=== PATIENT | male | born 1945 | race Caucasian/White ===

== ENCOUNTER → 2017-07-03 | Outpatient (CLI) | payer MEDICARE ==
[2017-07-03 12:01] LABS: Blood Urea Nitrogen 15 mg/dL (9-20); Non-African American GFR(MDRD) >60 (>60 ml/min/1.73 sqM)
--- NOTE | 2017-07-03 13:28 | CT ---
EXAMINATION TYPE: CT soft tissue neck w con DATE OF EXAM: 07/03/2017 COMPARISON: NONE HISTORY: 71-year-old male hoarseness/yeast infection TECHNIQUE: Contiguous axial scanning of the neck performed with IV Contrast, patient injected with 94 mL of Omnipaque 300. Coronal/sagittal reconstructions performed. CT DLP: 514.80 mGycm Automated exposure control for dose reduction was used. FINDINGS: Visualized intracranial structures show no gross abnormality. Atherosclerotic calcifications within t he carotid siphons. Mild mucosal thickening within the left maxillary sinus with possible trace air-fluid level. Moderate mucosal thickening throughout the ethmoid air cells. Mastoid air cells well pneumatized. Nasopharynx appears clear. There is soft tissue thickening in the region of the left palatine tonsil with soft tissue asymmetrically effacing the left oropharynx, axial image 60. Mild lingual tonsillar hypertrophy. The glottic and subglottic structures, tracheal column, and visualized upper appeared clear. The epiglottis and prevertebral soft tissues appear normal. Submandibular and parotid glands appear satisfactory. Heterogeneity of the thyroid gland with sugges tion of underlying nodules measuring up to 1.5 cm. Scattered nonenlarged cervical lymph nodes are present on both sides. Median sternotomy changes. IMPRESSION: 1. ASYMMETRIC SOFT TISSUE IN THE REGION OF THE LEFT PALATINE TONSIL EFFACING THE LEFT SIDE OF THE LOVELY PHARYNX. RECOMMEND DIRECT VISUALIZATION. THIS MAY IN PART BE SECONDARY TO TONGUE POSITIONING. UNDERLY ING MUCOSAL LESION IS NOT EXCLUDED AT THIS TIME. 2. NODULARITY OF THE THYROID GLAND MEASURING UP TO 1.5 CM. THIS CAN BE FURTHER ASSESSED WITH DEDICATE D THYROID ULTRASOUND. 3. CORRELATE TO EXCLUDE ACUTE ON CHRONIC LEFT MAXILLARY SINUS DISEASE.
== END | disposition home or self-care (01) ==
LOC: RADCTMAIN 10:59
PROVIDERS: ATTEND Otolaryngology
DX: E04.1 Nontoxic single thyroid nodule (principal); M79.89 Other specified soft tissue disorders; R93.8 Abnormal findings on diagnostic imaging of other specified body structures; R49.0 Dysphonia
CPT/HCPCS: 82565; 84520; 70491; 36415; Q9967

== ENCOUNTER 2017-07-26 11:57 | Day surgery (SDC) | payer MEDICARE ==
[2017-07-26 13:11] VITALS: RESP 14; TEMP 97.5
[2017-07-26 13:53] VITALS: BP 142/84; PULSE 75
--- NOTE | 2017-07-26 14:11 | US ---
ULTRASOUND GUIDED FNA THYROID BIOPSY: CLINICAL HISTORY: Large left thyroid nodule FINDINGS: The procedure was explained to the patient. The risks, complications, benefits and alternatives were discussed and any questions were answered. Informed consent was obtained. Patient was placed supin e on the ultrasound table and prepped and draped in the usual sterile fashion. Utilizing a 25 gauge needle, five passes were made into the requested left thyroid nodule. Patient was stable throughout the procedure. Pathology is pending. All elements of maximal barrier technique were utilized. IMPRESSION: 1. Successful ultrasound guided FNA thyroid biopsy.
== END 2017-07-26 13:50 | disposition home or self-care (01) ==
LOC: RADPROMAIN 11:57
PROVIDERS: ATTEND Otolaryngology
DX: E04.1 Nontoxic single thyroid nodule (principal)
CPT/HCPCS: 10022; 76942; 88173; 88305

== ENCOUNTER → 2018-03-04 | Outpatient (CLI) | payer MEDICARE ==
--- NOTE | 2018-03-04 18:55 | CT ---
EXAMINATION TYPE: CT brain wo con DATE OF EXAM: 03/04/2018 HISTORY: Headaches x6 weeks. CT DLP: 1046.8 mGycm. Automated Exposure Control for Dose Reduction was Utilized. TECHNIQUE: CT scan of the head is performed without contrast. COMPARISON: None. FINDINGS: There is no acute intracranial hemorrhage or midline shift identified. There is diffuse v entricular and sulcal prominence consistent with diffuse age-related cerebral atrophy. There is low- attenuation in the periventricular white matter consistent with chronic small vessel ischemic change. There is patchy opacification mucosal thickening involving ethmoid sinuses bilaterally. There is isaac e mucosal thickening in right frontal and anterior right sphenoid sinus. The globes are intact bilate rally. IMPRESSION: No acute intracranial hemorrhage or midline shift. There is mild to moderate diffuse ag e-related cerebral atrophy and chronic small vessel ischemic change noted. Possible acute on chronic paranasal sinus disease, correlate clinically.
== END | disposition home or self-care (01) ==
LOC: RADCTMAIN 18:06
PROVIDERS: ATTEND Family Medicine
DX: G31.9 Degenerative disease of nervous system, unspecified (principal); I67.82 Cerebral ischemia
CPT/HCPCS: 70450

== ENCOUNTER → 2018-11-11 | Day surgery (SDC) | payer MEDICARE ==
[2018-11-07 15:43] VITALS: BMI 31.7
[~2018-11-11] MED LIST: LACTATED RINGERS 1,000 ML IV ONE; LIDOCAINE 1% 20 ML VIAL (10MG/ML) FOR IV START INTRADERMA ONE; LIDOCAINE 1% INJ 10MG/ML (20 ML MDV) ONE; PROPOFOL 10 MG/ML 20 ML VIAL IV ONE
[2018-11-11 11:25] VITALS: TEMP 97.9
[2018-11-11 14:57] VITALS: RESP 16
--- NOTE | 2018-11-11 15:05 | P.PCN ---
Date of Procedure: 11/11/18 Procedure(s) Performed: Procedures: 1. Esophagogastroduodenoscopy and biopsy. 2. Colonoscopy and biopsy. Preoperative diagnosis: History of Madison's esophagus, history of polyps and rectal bleeding. Postoperative diagnosis: 1. Hiatal hernia and short segment of Madison's esophagus multiple biopsies obtained. 2. Sigmoid diverticulosis. 3. Elongated fleshy distal sigmoid polyp, probably representing regenerative tissue biopsies obtained. Preparation: HalfLytely prep. Sedation: Was provided by anesthesia. Brief clinical history: The patient is a 73-year-old male who I have evaluated in the office earlier this month regarding rectal bleeding. The patient has history of Madison's esophagus and his last EGD was in September 2016. He also has history of colon polyps and his last exam was in 2014. Procedure: With the patient on his left lateral decubitus position and after informed consent and adequate sedation, I passed the Olympus-GIF H190 video upper endoscope through the cricopharyngeus down the esophagus. GE junction was irregular and started around 36 cm from the incisors and the tubular esophagus extended for 3-4 cm defining a segment of short Madison's. There was a 1-2 cm hiatal hernia then the endoscope was passed into the stomach which was insufflated with air and inspected in detail including the retroflex view in the cardia. Finally, the endoscope was passed through the pylorus into the duodenum. Pyloric channel, duodenal bulb, post bulbar area and descending duodenum appeared within normal limits. The stomach showed mottling and erythema as previously described but no ulcers or bleeding. I obtained biopsies from the Madison's segment then the endoscope was withdrawn and I proceeded with the colonoscopy. Perianal area did not show any fissures or fistulas. There were no masses felt on digital rectal examination. The Olympus CF H190L video colonoscope was then inserted in the rectum in the usual fashion and advanced to the cecum. There were multiple diverticular orifices seen scattered in the sigmoid but I saw no evidence of acute diverticulitis or strictures. In the distal sigmoid, around 20 cm from the anal verge there was an elongated redundant fleshy polyp having the appearance of a broad fleshy fold. This appeared somewhat friable. I obtained couple biopsies but no attempt was made to snare it because of its location and broad attachment. No other polyps or tumors were seen or any spontaneous bleeding. I retroflexed the endoscope in the rectum before the endoscope was withdrawn. The patient tolerated the procedure well. Plan: The patient was reassured. Will await biopsy results and make further plans. I anticipate repeating his upper endoscopy in 2-3 years.
[2018-11-11 15:23] VITALS: BP 136/84; PULSE 74
== END | disposition home or self-care (01) ==
LOC: ORWHC2ENDO 10:44
DX: K63.5 Polyp of colon (principal); K22.70 Barrett's esophagus without dysplasia; K57.30 Diverticulosis of large intestine without perforation or abscess without bleeding; K44.9 Diaphragmatic hernia without obstruction or gangrene; I48.91 Unspecified atrial fibrillation; K21.9 Gastro-esophageal reflux disease without esophagitis; I10 Essential (primary) hypertension; E78.5 Hyperlipidemia, unspecified; Z87.891 Personal history of nicotine dependence; Z79.82 Long term (current) use of aspirin; Z86.010 Personal history of colon polyps; Z88.5 Allergy status to narcotic agent; Z79.899 Other long term (current) drug therapy; Z79.01 Long term (current) use of anticoagulants; Z85.51 Personal history of malignant neoplasm of bladder
CPT/HCPCS: 88305; 45380; 43239; J2001; J2704

== ENCOUNTER → 2020-12-14 | Outpatient (CLI) | payer MEDICARE ==
[2020-12-14 21:03] LABS: Chol/HDL Ratio 3.27; LDL Cholesterol,Calculated 71.2 mg/dL (0.0-131.0); VLDL Calculation 12.8 mg/dL (5.00-40.00)
== END | disposition home or self-care (01) ==
LOC: LABWHC1 11:38
PROVIDERS: ATTEND Internal Medicine Interventional Cardiology
DX: E78.2 Mixed hyperlipidemia (principal)
CPT/HCPCS: 36415; 80061; 84450; 84460

== ENCOUNTER 2022-10-19 06:11 | Emergency (ER) | payer MEDICARE ==
[2022-10-19] MEDS ORDERED: SODIUM CHLORIDE 0.9% 500 ML 500 ML IV STA (06:31)
[2022-10-19] MEDS ORDERED: fentaNYL (PF) 50 MCG/ML 2 ML AMP IVP STA (06:45)
[2022-10-19 06:46] VITALS: TEMP 97.8
--- NOTE | 2022-10-19 06:55 | ED ---
Abdominal Pain HPI - General Chief Complaint: Abdominal Pain Stated Complaint: abd pain,vomiting Time Seen by Provider: 10/19/22 06:23 Source: patient, family, RN notes reviewed, old records reviewed Mode of arrival: ambulatory - History of Present Illness Initial Comments: This is a pleasant 77-year-old male that presents to the emergency room with family complaining of right lower quadrant pain since yesterday. Patient states he has not had bowel movement in 3 days. He states pain improved after an episode of vomiting. He feels as though he needs to pass gas and has been unable to. Denies any fevers. Surgical history of appendectomy and cholecystectomy. MD Complaint: abdominal pain -: days(s) (1) Location: RLQ Radiation: back Severity scale (1-10): 7 Quality: sharp Consistency: intermittent Improves With: vomiting Worsens With: nothing Associated Symptoms: nausea, vomiting, constipation (Last bowel movement 3 days ago) - Related Data Home Medications Medication Instructions Recorded Confirmed Omeprazole [PriLOSEC] 20 mg PO DAILY 03/02/14 11/07/18 Aspirin [Adult Low Dose Aspirin EC] 81 mg PO DAILY 12/30/15 11/07/18 Nitroglycerin Sl Tabs [Nitrostat] 0.4 mg SUBLINGUAL Q5M PRN 12/30/15 11/07/18 Rivaroxaban [Xarelto] 20 mg PO DAILY 12/30/15 11/07/18 Atorvastatin [Lipitor] 80 mg PO HS 01/12/16 11/07/18 Spironolactone [Aldactone] 25 mg PO DAILY 09/26/16 11/07/18 Fluticasone Propion/Salmeterol 2 puff INHALATION BID 11/07/18 11/07/18 [Advair Hfa 115-21 Mcg Inhaler] Losartan [Cozaar] 25 mg PO 1200 11/07/18 11/07/18 Previous Rx's Medication Instructions Recorded Metoprolol Tartrate [Lopressor] 25 mg PO BID #60 tab 01/20/16 Ciprofloxacin HCl [Cipro] 500 mg PO Q12HR 7 Days #14 tablet 10/19/22 Ketorolac [Toradol] 10 mg PO Q8HR #15 tab 10/19/22 Tamsulosin [Flomax] 0.4 mg PO DAILY #7 cap 10/19/22 Allergies Allergy/AdvReac Type Severity Reaction Status Date / Time hydrocodone bitartrate Allergy Itching Verified 11/07/18 15:26 [From Vicodin] dust Allergy "asthma" Uncoded 11/07/18 15:26 "can't breathe" Review of Systems ROS Statement: Those systems with pertinent positive or pertinent negative responses have been documented in the HPI. ROS Other: All systems not noted in ROS Statement are negative. Past Medical History Past Medical History: Atrial Fibrillation, Asthma, Cancer, GERD/Reflux, GI Bleed, Hyperlipidemia, Hypertension, Osteoarthritis (OA) Additional Past Medical History / Comment(s): Current GI bleed. Hx Bladder [id number], also Hx Skin CA - basal cell, Madison's. History of Any Multi-Drug Resistant Organisms: None Reported Past Surgical History: Appendectomy, Bladder Surgery, Cholecystectomy, Coronary Bypass/CABG, Heart Catheterization, Orthopedic Surgery Additional Past Surgical History / Comment(s): RT ROTATOR CUFF SX. PARTIAL BLADDER REMOVED D/T CANCER. SKIN CA REMOVED. PAST EGD, COLONOSCOPY. 4 vessel CABG. Past Anesthesia/Blood Transfusion Reactions: No Reported Reaction Past Psychological History: No Psychological Hx Reported Past Alcohol Use History: Occasional Past Drug Use History: None Reported - Past Family History Mother Family Medical History: Cancer Additional Family Medical History / Comment(s): at age 36 from breast cancer. Father Family Medical History: Myocardial Infarction (CT) Additional Family Medical History / Comment(s): at 73 yrs of age. Brother(s) Family Medical History: Cancer Additional Family Medical History / Comment(s): Intestinal cancer. General Exam General appearance: alert, in no apparent distress Head exam: Present: atraumatic Eye exam: Absent: scleral icterus, conjunctival injection, periorbital swelling Respiratory exam: Present: normal lung sounds bilaterally. Absent: respiratory distress, wheezes, rales, rhonchi, stridor, chest wall tenderness, accessory muscle use Cardiovascular Exam: Present: regular rate GI/Abdominal exam: Present: soft, tenderness (RLQ). Absent: distended, guardin g, rebound, rigid Extremities exam: Present: normal capillary refill. Absent: pedal edema Neurological exam: Present: alert, oriented X3 Psychiatric exam: Present: normal affect, normal mood Skin exam: Present: warm, dry, normal color. Absent: cyanosis, diaphoretic, petechiae, pallor Course Vital Signs 10/19/22 10/19/22 06:19 06:35 Temperature 97.4 F L 97.8 F Pulse Rate 82 82 Respiratory 16 16 Rate Blood Pressure 158/93 149/83 O2 Sat by Pulse 96 98 Oximetry Medical Decision Making - Medical Decision Making CT shows no evidence of bowel obstruction. There is a mild right hydroureter ureterohydronephrosis with an obstructing 4 mm calculus in the right mid ureter. Additional nonobstructive right renal calculi. Colonic diverticulosis without evidence of diverticulitis. 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 There is a mild leukocytosis and UA shows evidence of UTI with hematuria. Patient will be placed on Cipro. He was also prescribed Flomax and Toradol. Patient sees Dr Reyes for past history of bladder cancer and kidney stones. Directed to follow up with urology next week. He was given a strainer for urine. He is agreeable to this plan of care. He was also notified of the aneurysm right iliac artery and directed to discuss this result with his primary care doctor. Patient family are agreeable to this plan of care. Case was discussed with Dr. Acosta Was pt. sent in by a medical professional or institution? @ -No Did you speak to anyone other than the patient for history? @ -No Did you review nursing and triage notes? @ -Yes I agree Were old charts reviewed? @ -Previous admissions Differential Diagnosis? @ -Differential Abdominal Pain Men: Appendicitis, cholecystitis, diverticulosis, ischemic bowel, pancreatitis, h epatitis, UTI, gastroenteritis, AAA, incarcerated hernia, bowel obstruction, constipation, inflammatory bowel, hepatitis, peptic ulcer disease, splenic infarction, perforated viscus, testicular torsion, this is not meant to be an all-inclusive list EKG interpreted by me (3pts min.)? @ -Not applicable X-rays interpreted by me (1pt min.)? @ -Yes no evidence of free air on KUB, surgical clips in the abdomen. Radiologist interpretation overall nonobstructive bowel gas pattern CT interpreted by me (1pt min.)? @ -Yes no evidence of bowel obstruction, calculus right mid ureter with per inephric fat stranding. U/S interpreted by me (1pt. min.)? @ -Not applicable What testing was considered but not performed? (CT, X-rays, U/S, labs)? Why? @None What meds were considered but not given? Why? @ -I did consider Todd as patient states he had an episode of vomiting however at this time he states is not nauseated. Did you discuss the management of the patient with other professionals? @ -No Did you reconcile home meds? @ -No Was smoking cessation discussed for >3mins.? @ -Not applicable Was critical care preformed (if so, how long)? @ -No Were there social determinants of health that impacted care today? How? (Homelessness, low income, unemployed, alcoholism, drug addiction, transportation, low edu. Level, literacy, decrease access to med. care, skilled nursing, rehab)? @ -No Was there de-escalation of care discussed even if they declined? (Discuss DNR or withdrawal of care, Hospice)? @ -Not applicable What co-morbidities impacted this encounter? (DM, HTN, Smoking, COPD, CAD, Cancer, CVA, Hep., AIDS, mental health diagnosis, sleep apnea, morbid obesity)? @ -Bladder cancer, hypertension, GI bleed Was patient admitted / discharged? @ -Discharged Undiagnosed new problem with uncertain prognosis? 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 @ -No Were any procedures done? @ -No Diagnosis/symptom? @ -Right hydroureteronephrosis with obstructive calculi, right common iliac artery aneurysm Acute, or Chronic, or Acute on Chronic? @ -Acute Uncomplicated (without systemic symptoms) or Complicated (systemic symptoms)? @ -Complicated Side effects of treatment? @ -None Exacerbation, Progression, or Severe Exacerbation] @ -Exacerbation Poses a threat to life or bodily function? @ -No - Lab Data Result diagrams: 10/19/22 06:41 10/19/22 06:41 Lab Results 10/19/22 10/19/22 10/19/22 Range/Units 06:41 06:41 06:41 WBC 16.0 H (3.8-10.6) k/uL RBC 5.11 (4.30-5.90) m/uL Hgb 15.3 (13.0-17.5) gm/dL Hct 46.4 (39.0-53.0) % MCV 90.6 (80.0-100.0) fL MCH 29.9 (25.0-35.0) pg MCHC 33.0 (31.0-37.0) g/dL RDW 12.6 (11.5-15.5) % Plt Count 266 (150-450) k/uL MPV 8.7 Neutrophils % 88 % Lymphocytes % 6 % Monocytes % 5 % Eosinophils % 1 % Basophils % 1 % Neutrophils # 14.0 H (1.3-7.7) k/uL Lymphocytes # 0.9 L (1.0-4.8) k/uL Monocytes # 0.8 (0-1.0) k/uL Eosinophils # 0.1 (0-0.7) k/uL Basophils # 0.1 (0-0.2) k/uL Sodium 135 L (137-145) mmol/L Potassium 4.9 (3.5-5.1) mmol/L Chloride 102 (98-107) mmol/L Carbon Dioxide 22 (22-30) mmol/L Anion Gap 11 mmol/L BUN 21 H (9-20) mg/dL Creatinine 0.92 (0.66-1.25) mg/dL Est GFR (CKD-EPI)AfAm >90 (>60 ml/min/1.73 sqM) Est GFR (CKD-EPI)NonAf 79 (>60 ml/min/1.73 sqM) Glucose 257 H (74-99) mg/dL Plasma Lactic Acid Rafael 1.8 (0.7-2.0) mmol/L Calcium 9.3 (8.4-10.2) mg/dL Total Bilirubin 1.1 (0.2-1.3) mg/dL AST 29 (17-59) U/L ALT 39 (4-49) U/L Alkaline Phosphatase 104 (38-126) U/L Total Protein 7.6 (6.3-8.2) g/dL Albumin 4.5 (3.5-5.0) g/dL Amylase 77 (30-110) U/L Lipase 95 (23-300) U/L Urine Color Urine Appearance (Clear) Urine pH (5.0-8.0) Ur Specific [place] (1.001-1.035) Urine Protein (Negative) Urine Glucose (UA) (Negative) Urine Ketones (Negative) Urine Blood (Negative) Urine Nitrite (Negative) Urine Bilirubin (Negative) Urine Urobilinogen (<2.0) mg/dL Ur Leukocyte Esterase (Negative) Urine RBC (0-5) /hpf Urine WBC (0-5) /hpf Ur Squamous Epith Cells (0-4) /hpf Urine Mucus (None) /hpf 10/19/22 Range/Units 06:58 WBC (3.8-10.6) k/uL RBC (4.30-5.90) m/uL Hgb (13.0-17.5) gm/dL Hct (39.0-53.0) % MCV (80.0-100.0) fL MCH (25.0-35.0) pg MCHC (31.0-37.0) g/dL RDW (11.5-15.5) % Plt Count (150-450) k/uL MPV Neutrophils % % Lymphocytes % % Monocytes % % Eosinophils % % Basophils % % Neutrophils # (1.3-7.7) k/uL Lymphocytes # (1.0-4.8) k/uL Monocytes # (0-1.0) k/uL Eosinophils # (0-0.7) k/uL Basophils # (0-0.2) k/uL Sodium (137-145) mmol/L Potassium (3.5-5.1) mmol/L Chloride (98-107) mmol/L Carbon Dioxide (22-30) mmol/L Anion Gap mmol/L BUN (9-20) mg/dL Creatinine (0.66-1.25) mg/dL Est GFR (CKD-EPI)AfAm (>60 ml/min/1.73 sqM) Est GFR (CKD-EPI)NonAf (>60 ml/min/1.73 sqM) Glucose (74-99) mg/dL Plasma Lactic Acid Rafael (0.7-2.0) mmol/L Calcium (8.4-10.2) mg/dL Total Bilirubin (0.2-1.3) mg/dL AST (17-59) U/L ALT (4-49) U/L Alkaline Phosphatase (38-126) U/L Total Protein (6.3-8.2) g/dL Albumin (3.5-5.0) g/dL Amylase (30-110) U/L Lipase (23-300) U/L Urine Color Light Yellow Urine Appearance Clear (Clear) Urine pH 7.5 (5.0-8.0) Ur Specific [place] 1.019 (1.001-1.035) Urine Protein Negative (Negative) Urine Glucose (UA) 4+ H (Negative) Urine Ketones 1+ H (Negative) Urine Blood Large H (Negative) Urine Nitrite Negative (Negative) Urine Bilirubin Negative (Negative) Urine Urobilinogen 2.0 (<2.0) mg/dL Ur Leukocyte Esterase Large H (Negative) Urine RBC 139 H (0-5) /hpf Urine WBC 69 H (0-5) /hpf Ur Squamous Epith Cells <1 (0-4) /hpf Urine Mucus Rare H (None) /hpf Disposition Clinical Impression: Kidney stone on right side, Hydroureteronephrosis, Aneurysm of right common iliac artery Disposition: HOME SELF-CARE Condition: Good Instructions (If sedation given, give patient instructions): Kidney Stones (ED) Additional Instructions: Your computed tomography scan today shows a 4 mm calculus in the right mid ureter. Please take antibiotics, Flomax and Toradol as prescribed. Follow-up with your urologist next week. Return to the emergency room with any new or concerning symptoms. On CT there is also an incidental finding of a 2.1 cm aneurysm of the right common iliac artery. Please discuss these results with your primary care doctor. Prescriptions: Ciprofloxacin HCl [Cipro] 500 mg PO Q12HR 7 Days #14 tablet Tamsulosin [Flomax] 0.4 mg PO DAILY #7 cap Ketorolac [Toradol] 10 mg PO Q8HR #15 tab Is patient prescribed a controlled substance at d/c from ED?: No Referrals: Eloy Blake MD [Primary Care Provider] - 1-2 days Rm Reyes MD [STAFF PHYSICIAN] - 1-2 days Time of Disposition: 07:57
--- NOTE | 2022-10-19 07:05 | XR ---
EXAMINATION TYPE: XR KUB DATE OF EXAM: 10/19/2022 COMPARISON: CT abdomen pelvis 10/19/2022 HISTORY: Abdominal pain TECHNIQUE: Upright KUB was obtained. FINDINGS: Small bowel demonstrates no evidence for dilatation or air fluid levels. Gas and fecal material is seen in non-distended colon. No convincing evidence for pneumoperitoneum. No unusual calcifications. Surgical clips in the right upper quadrant and bilateral pelvises. The lung bases are clear. The osseous structures are intact. IMPRESSION: Overall nonobstructive bowel gas pattern.
[2022-10-19 07:11] LABS: Basophils # (A) 0.1 k/uL (0-0.2); Basophils % (A) 1 %; Eosinophils # (A) 0.1 k/uL (0-0.7); Eosinophils % (A) 1 %; HCT 46.4 % (39.0-53.0); HGB 15.3 gm/dL (13.0-17.5); Lymphocytes # (A) 0.9 k/uL (1.0-4.8); Lymphocytes % (A) 6 %; MCH 29.9 pg (25.0-35.0); MCV 90.6 fL (80.0-100.0); Mean Platelet Volume 8.7; Monocytes # (A) 0.8 k/uL (0-1.0); Monocytes % (A) 5 %; Neutrophils % (A) 88 %; Platelet Count 266 k/uL (150-450); RBC 5.11 m/uL (4.30-5.90); RDW 12.6 % (11.5-15.5)
--- NOTE | 2022-10-19 07:12 | CT ---
EXAMINATION TYPE: CT abdomen pelvis wo con CT DLP: 1108.6 mGycm, Automated exposure control for dose reduction was used. DATE OF EXAM: 10/19/2022 7:01 AM COMPARISON: KUB of the same date., CT abdomen pelvis 01/01/2011. CLINICAL INDICATION:Male, 77 years old with history of abd pain RLQ; TECHNIQUE: Standard CT of the abdomen and pelvis without IV or oral contrast. Lack of IV or oral co ntrast limits evaluation of solid and hollow organ viscera. Coronal and sagittal reformats were perfo rmed. FINDINGS: LOWER CHEST: Left lower lobe subsegmental atelectasis. Mild cardiomegaly. No pericardial effusion. Co ronary arterial calcifications. ABDOMEN LIVER: Unremarkable noncontrast appearance. GALLBLADDER AND BILE DUCTS: The gallbladder is surgically absent. No biliary duct dilatation. PANCREAS: Unremarkable noncontrast appearance. SPLEEN: Unremarkable noncontrast appearance. ADRENAL GLANDS: Unremarkable noncontrast appearance. KIDNEYS AND URETERS: Left kidney is unremarkable without evidence of hydronephrosis or renal calculi. Mild right hydroureteronephrosis with an obstructing 4 mm calculus in the mid right ureter there is associated perinephric and periureteral fat stranding. Additional nonobstructive right renal calculi measuring up to 6 mm. PELVIS BLADDER: Unremarkable REPRODUCTIVE: Coarse calcifications of the prostate gland are identified. ABDOMEN & PELVIS STOMACH AND BOWEL: Small hiatal hernia, duodenum is unremarkable. Distal colonic diverticulosis witho ut evidence for acute diverticulitis. The appendix is not visualized however there is no significant inflammatory changes within the right lower quadrant. No evidence of bowel obstruction. PERITONEUM: No evidence of pneumoperitoneum or free fluid. Surgical clips along the bilateral pelvic london. VASCULATURE: Moderate atherosclerotic calcifications are present throughout the abdominal aorta and i ts branches. Fusiform 2.1 cm aneurysm involving the right common iliac artery. MUSCULOSKELETAL: No acute osseous abnormalities. Mild disc degeneration changes are present throughou t the thoracolumbar spine. LYMPH NODES: No gross evidence for lymphadenopathy. SOFT TISSUE/ABDOMINAL WALL: Tiny fat filled umbilical hernia. IMPRESSION: 1. Mild right hydroureteronephrosis with an obstructing 4 mm calculus in the right mid ureter. Addit ional nonobstructive right renal calculi. 2. Colonic diverticulosis without evidence for acute diverticulitis. 3. 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
[2022-10-19 07:17] LABS: Appearance,Urine Clear (Clear); Bilirubin,Urine Negative (Negative); Blood,Urine Large (Negative); Color,Urine Light Yellow; Glucose,Urine (UA) 4+ (Negative); Ketones,Urine 1+ (Negative); Leukocyte Esterase,Urine Large (Negative); Mucus,Urine Rare /hpf; Nitrite,Urine Negative (Negative); PH, Urine 7.5 (5.0-8.0); Protein,Urine Negative (Negative); RBC,Urine 139 /hpf (0-5); Specific Gravity,Urine 1.019 (1.001-1.035); Squamous Epithelial Cell,Urine <1 /hpf (0-4); WBC,Urine 69 /hpf (0-5)
[2022-10-19 07:19] LABS: ALT 39 U/L (4-49); AST 29 U/L (17-59); African American GFR (CKD) >90 (>60 ml/min/1.73 sqM); Albumin 4.5 g/dL (3.5-5.0); Alkaline Phosphatase 104 U/L (38-126); Amylase 77 U/L (30-110); Anion Gap 11 mmol/L; Blood Urea Nitrogen 21 mg/dL (9-20); Calcium 9.3 mg/dL (8.4-10.2); Carbon Dioxide 22 mmol/L (22-30); Chloride 102 mmol/L (98-107); Glucose 257 mg/dL (74-99); Lipase 95 U/L (23-300); Non-African American GFR(CKD) 79 (>60 ml/min/1.73 sqM); Sodium 135 mmol/L (137-145); Total Bilirubin 1.1 mg/dL (0.2-1.3); Total Protein 7.6 g/dL (6.3-8.2)
[2022-10-19 07:54] LABS: Potassium 4.9 mmol/L (3.5-5.1)
[2022-10-19 08:06] VITALS: BP 143/83; PULSE 86; RESP 15
== END 2022-10-19 08:09 | disposition home or self-care (01) ==
LOC: EC 06:11
DX: N13.2 Hydronephrosis with renal and ureteral calculous obstruction (principal); I72.3 Aneurysm of iliac artery; K57.30 Diverticulosis of large intestine without perforation or abscess without bleeding; I48.91 Unspecified atrial fibrillation; J45.909 Unspecified asthma, uncomplicated; K21.9 Gastro-esophageal reflux disease without esophagitis; E78.5 Hyperlipidemia, unspecified; I10 Essential (primary) hypertension; M19.90 Unspecified osteoarthritis, unspecified site; Z79.899 Other long term (current) drug therapy; Z79.01 Long term (current) use of anticoagulants; Z79.82 Long term (current) use of aspirin; Z79.1 Long term (current) use of non-steroidal anti-inflammatories (NSAID); Z88.5 Allergy status to narcotic agent; Z88.8 Allergy status to other drugs, medicaments and biological substances
CPT/HCPCS: 99285; 96374; 96361; 36415; 80053; 82150; 83605; 83690; 85025; 81001; 87086; 74018; 74176; J3010

== ENCOUNTER → 2022-11-20 | Outpatient (CLI) | payer MEDICARE ==
--- NOTE | 2022-11-20 10:54 | XR ---
EXAMINATION TYPE: XR KUB DATE OF EXAM: 11/20/2022 COMPARISON: 10/19/2022, HISTORY: Pain TECHNIQUE: One view abdominal series FINDINGS: The osseous structures are intact. The bowel gas pattern is nonspecific. Pleural-based calcification s are seen at the lung bases. Hypertrophic and degenerative changes in the spine. Clips are seen in t he abdomen. No definite calcifications overlying the renal outlines. Prostate calcifications noted. IMPRESSION: 1. No definite suspicious calcifications seen within the abdomen or pelvis on today's exam. Previousl y noted right mid ureteral calculus on CT scan not well seen by standard x-ray.
== END | disposition home or self-care (01) ==
LOC: RADXRMAIN 10:15
PROVIDERS: ATTEND Urology
DX: N20.2 Calculus of kidney with calculus of ureter (principal)
CPT/HCPCS: 74018

== ENCOUNTER 2023-07-31 16:52 | Inpatient (IN) | payer MEDICARE ==
--- NOTE | 2023-07-31 17:50 | ED ---
General Adult HPI - General Chief complaint: Chest Pain Stated complaint: Chest Pain Time Seen by Provider: 07/31/23 17:31 Source: patient, RN notes reviewed, old records reviewed Mode of arrival: wheelchair - History of Present Illness Initial comments: 78-year-old male with an episode of palpitations and chest pain. This was associated with diaphoresis. Patient has had 2 episodes today one of 70 abdomen and again at 3 PM. He has history of coronary disease status post bypass in 2016. He states he did have an episode of atrial fibrillation at that time but has been in sinus rhythm since. He is on Eliquis. He has no symptoms at the time my evaluation. - Related Data Home Medications Medication Instructions Recorded Confirmed Omeprazole [PriLOSEC] 20 mg PO DAILY 03/02/14 11/07/18 Aspirin [Adult Low Dose Aspirin EC] 81 mg PO DAILY 12/30/15 11/07/18 Nitroglycerin Sl Tabs [Nitrostat] 0.4 mg SUBLINGUAL Q5M PRN 12/30/15 11/07/18 Rivaroxaban [Xarelto] 20 mg PO DAILY 12/30/15 11/07/18 Atorvastatin [Lipitor] 80 mg PO HS 01/12/16 11/07/18 Spironolactone [Aldactone] 25 mg PO DAILY 09/26/16 11/07/18 Fluticasone Propion/Salmeterol 2 puff INHALATION BID 11/07/18 11/07/18 [Advair Hfa 115-21 Mcg Inhaler] Losartan [Cozaar] 25 mg PO 1200 11/07/18 11/07/18 Previous Rx's Medication Instructions Recorded Metoprolol Tartrate [Lopressor] 25 mg PO BID #60 tab 01/20/16 Ciprofloxacin HCl [Cipro] 500 mg PO Q12HR 7 Days #14 tablet 10/19/22 Ketorolac [Toradol] 10 mg PO Q8HR #15 tab 10/19/22 Tamsulosin [Flomax] 0.4 mg PO DAILY #7 cap 10/19/22 Allergies Allergy/AdvReac Type Severity Reaction Status Date / Time hydrocodone bitartrate Allergy Itching Verified 07/31/23 17:14 [From Vicodin] dust Allergy "asthma" Uncoded 07/31/23 17:14 "can't breathe" Review of Systems ROS Statement: Those systems with pertinent positive or pertinent negative responses have been documented in the HPI. ROS Other: All systems not noted in ROS Statement are negative. Past Medical History Past Medical History: Atrial Fibrillation, Asthma, Cancer, GERD/Reflux, GI Bleed, Hyperlipidemia, Hypertension, Osteoarthritis (OA) Additional Past Medical History / Comment(s): Current GI bleed. Hx Bladder [id number], also Hx Skin CA - basal cell, Madison's. History of Any Multi-Drug Resistant Organisms: None Reported Past Surgical History: Appendectomy, Bladder Surgery, Cholecystectomy, Coronary Bypass/CABG, Heart Catheterization, Orthopedic Surgery Additional Past Surgical History / Comment(s): RT ROTATOR CUFF SX. PARTIAL BLADDER REMOVED D/T CANCER. SKIN CA REMOVED. PAST EGD, COLONOSCOPY. 4 vessel CABG. Past Anesthesia/Blood Transfusion Reactions: No Reported Reaction Past Psychological History: No Psychological Hx Reported Smoking Status: Never smoker Past Alcohol Use History: Occasional Past Drug Use History: None Reported - Past Family History Mother Family Medical History: Cancer Additional Family Medical History / Comment(s): at age 36 from breast cancer. Father Family Medical History: Myocardial Infarction ([place]) Additional Family Medical History / Comment(s): at 73 yrs of age. Brother(s) Family Medical History: Cancer Additional Family Medical History / Comment(s): Intestinal cancer. General Exam General appearance: alert, in no apparent distress Head exam: Present: atraumatic, normocephalic Eye exam: Present: normal appearance, PERRL ENT exam: Present: normal exam Neck exam: Present: normal inspection. Absent: tenderness Respiratory exam: Present: normal lung sounds bilaterally. Absent: respiratory distress Cardiovascular Exam: Present: regular rate, irregular rhythm GI/Abdominal exam: Present: soft. Absent: distended, tenderness, guarding, rebound Extremities exam: Present: normal inspection, normal capillary refill. Absent: pedal edema, calf tenderness Neurological exam: Present: alert, oriented X3, CN II-XII intact. Absent: motor sensory deficit Psychiatric exam: Present: normal affect, normal mood Skin exam: Present: warm, dry, intact. Absent: cyanosis, diaphoretic Course Vital Signs 07/31/23 07/31/23 17:11 17:48 Temperature 97.6 F 98.6 F Pulse Rate 92 89 Respiratory 18 18 Rate Blood Pressure 131/80 130/80 O2 Sat by Pulse 97 96 Oximetry Medical Decision Making - Medical Decision Making Was pt. sent in by a medical professional or institution (EDGARDO Stewart, NON PROFIT DIRECTOR, urgent care, hospital, or skilled nursing...) When possible be specific @ -No Did you speak to anyone other than the patient for history (EMS, parent, family, police, friend...)? What history was obtained from this source @ -No Did you review nursing and triage notes (agree or disagree)? Why? @ -I reviewed and agree with nursing and triage notes Were old charts reviewed (outside hosp., previous admission, EMS record, old E KG, old radiological studies, urgent care reports/EKG's, skilled nursing records)? Report findings @ -No old charts were reviewed Differential Diagnosis (chest pain, altered mental status, abdominal pain women, abdominal pain men, vaginal bleeding, weakness, fever, dyspnea, syncope, headache, dizziness, GI bleed, back pain, seizure, CVA, palpatations, mental hea lth, musculoskeletal)? @ -Differential Chest Pain: Stable Angina, Unstable Angina, STEMI, NSTEMI Aortic Dissection, Pneumothorax, Musculoskeletal, Esophageal Spasm GERD, Cholecystitis, Pancreatitis, Zoster, this is not meant to be an all-inclusive list. EKG interpreted by me (3pts min.). @Sinus rhythm, rate of 90, IN interval 175, QRS duration 102, QTC 47, ST segment depression and T-wave inversion in the lateral precordial leads. X-rays interpreted by me (1pt min.). @ -[Chest x-ray negative for acute cardiopulmonary findings CT interpreted by me (1pt min.). @ -None done U/S interpreted by me (1pt. min.). @ -None done What testing was considered but not performed or refused? (CT, X-rays, U/S, labs)? Why? @ -None What meds were considered but not given or refused? Why? @ -None Did you discuss the management of the patient with other professionals (professionals i.e. EDGARDO Stewart, NON PROFIT DIRECTOR, lab, RT, psych nurse, high school social studies teacher, green building materials designer, teacher, seal delivery vehicle officer, community case manager)? Give summary @ -No Was smoking cessation discussed for >3mins.? @ -No Was critical care preformed (if so, how long)? @ -No Were there social determinants of health that impacted care today? How? (Homelessness, low income, unemployed, alcoholism, drug addiction, transportation, low edu. Level, literacy, decrease access to med. care, assisted, rehab)? @ -No Was there de-escalation of care discussed even if they declined (Discuss DNR or withdrawal of care, Hospice)? DNR status @ -No What co-morbidities impacted this encounter? (DM, HTN, Smoking, COPD, CAD, Cancer, CVA, ARF, Chemo, Hep., AIDS, mental health diagnosis, sleep apnea, morbid obesity)? @ -[Coronary artery disease Was patient admitted / discharged? Hospital course, mention meds given and route, prescriptions, significant lab abnormalities, going to OR and other pertinent info. @ -[78-year-old male with typical chest pain associated with palpitations. Pain resolved at the time my evaluation per patient's in sinus rhythm with ST segment depression in the lateral precordial leads. No ongoing chest pain. Workup in the emergency department reveals a normal CBC, normal CMP, negative initial troponin. His troponin level will be trended, he'll be admitted to a monitored bed with cardiology consultation. Undiagnosed new problem with uncertain prognosis? @ -No Drug Therapy requiring intensive monitoring for toxicity (Heparin, Nitro, Insulin, Cardizem)? @ -No Were any procedures done? @ -No Diagnosis/symptom? @ Chest pain rule out Acute, or Chronic, or Acute on Chronic? @ Acute Uncomplicated (without systemic symptoms) or Complicated (systemic symptoms)? @ -[Complicated Side effects of treatment? @ -No Exacerbation, Progression, or Severe Exacerbation? @ -No Poses a threat to life or bodily function? How? (Chest pain, [place], [place], pneumonia, PE, COPD, DKA, ARF, appy, cholecystitis, CVA, Diverticulitis, Homicidal, Suicidal, threat to staff... and all critical care pts) @ -He has chest pain risk of ischemia - Lab Data Result diagrams: 07/31/23 17:30 07/31/23 17:30 Lab Results 07/31/23 07/31/23 07/31/23 Range/Units 17:30 17:30 17:30 WBC 8.3 (3.8-10.6) k/uL RBC 5.12 (4.30-5.90) m/uL Hgb 15.4 (13.0-17.5) gm/dL Hct 46.9 (39.0-53.0) % MCV 91.7 (80.0-100.0) fL MCH 30.0 (25.0-35.0) pg MCHC 32.7 (31.0-37.0) g/dL RDW 13.1 (11.5-15.5) % Plt Count 239 (150-450) k/uL MPV 8.2 Neutrophils % 61 % Lymphocytes % 26 % Monocytes % 7 % Eosinophils % 5 % Basophils % 1 % Neutrophils # 5.0 (1.3-7.7) k/uL Lymphocytes # 2.2 (1.0-4.8) k/uL Monocytes # 0.5 (0-1.0) k/uL Eosinophils # 0.4 (0-0.7) k/uL Basophils # 0.1 (0-0.2) k/uL PT 10.6 (9.0-12.0) sec INR 1.0 (<1.2) APTT 25.8 (22.0-30.0) sec Sodium 139 (137-145) mmol/L Potassium 4.4 (3.5-5.1) mmol/L Chloride 104 (98-107) mmol/L Carbon Dioxide 24 (22-30) mmol/L Anion Gap 11 mmol/L BUN 15 (9-20) mg/dL Creatinine 0.74 (0.66-1.25) mg/dL Est GFR (CKD-EPI)AfAm >90 (>60 ml/min/1.73 sqM) Est GFR (CKD-EPI)NonAf 87 (>60 ml/min/1.73 sqM) Glucose 210 H (74-99) mg/dL Calcium 9.1 (8.4-10.2) mg/dL Total Bilirubin 0.5 (0.2-1.3) mg/dL AST 27 (17-59) U/L ALT 38 (4-49) U/L Alkaline Phosphatase 99 (38-126) U/L Troponin I (0.000-0.034) ng/mL Total Protein 6.9 (6.3-8.2) g/dL Albumin 4.2 (3.5-5.0) g/dL 07/31/23 Range/Units 17:30 WBC (3.8-10.6) k/uL RBC (4.30-5.90) m/uL Hgb (13.0-17.5) gm/dL Hct (39.0-53.0) % MCV (80.0-100.0) fL MCH (25.0-35.0) pg MCHC (31.0-37.0) g/dL RDW (11.5-15.5) % Plt Count (150-450) k/uL MPV Neutrophils % % Lymphocytes % % Monocytes % % Eosinophils % % Basophils % % Neutrophils # (1.3-7.7) k/uL Lymphocytes # (1.0-4.8) k/uL Monocytes # (0-1.0) k/uL Eosinophils # (0-0.7) k/uL Basophils # (0-0.2) k/uL PT (9.0-12.0) sec INR (<1.2) APTT (22.0-30.0) sec Sodium (137-145) mmol/L Potassium (3.5-5.1) mmol/L Chloride (98-107) mmol/L Carbon Dioxide (22-30) mmol/L Anion Gap mmol/L BUN (9-20) mg/dL Creatinine (0.66-1.25) mg/dL Est GFR (CKD-EPI)AfAm (>60 ml/min/1.73 sqM) Est GFR (CKD-EPI)NonAf (>60 ml/min/1.73 sqM) Glucose (74-99) mg/dL Calcium (8.4-10.2) mg/dL Total Bilirubin (0.2-1.3) mg/dL AST (17-59) U/L ALT (4-49) U/L Alkaline Phosphatase (38-126) U/L Troponin I 0.031 (0.000-0.034) ng/mL Total Protein (6.3-8.2) g/dL Albumin (3.5-5.0) g/dL Disposition Clinical Impression: S/P CABG (coronary artery bypass graft), Chest pain Disposition: ADMITTED IP TO THIS HOSP Condition: Stable Is patient prescribed a controlled substance at d/c from ED?: No Referrals: Eloy Blake MD [Primary Care Provider] - 1-2 days Time of Disposition: 19:32
[2023-07-31 17:58] LABS: Basophils # (A) 0.1 k/uL (0-0.2); Basophils % (A) 1 %; Eosinophils # (A) 0.4 k/uL (0-0.7); Eosinophils % (A) 5 %; HCT 46.9 % (39.0-53.0); HGB 15.4 gm/dL (13.0-17.5); Lymphocytes # (A) 2.2 k/uL (1.0-4.8); Lymphocytes % (A) 26 %; MCHC 32.7 g/dL (31.0-37.0); MCV 91.7 fL (80.0-100.0); Mean Platelet Volume 8.2; Monocytes # (A) 0.5 k/uL (0-1.0); Monocytes % (A) 7 %; Neutrophils % (A) 61 %; Platelet Count 239 k/uL (150-450); RBC 5.12 m/uL (4.30-5.90); RDW 13.1 % (11.5-15.5); WBC 8.3 k/uL (3.8-10.6)
[2023-07-31 18:08] LABS: Partial Thromboplastin Time 25.8 sec (22.0-30.0); Prothrombin Time 10.6 sec (9.0-12.0)
[2023-07-31 18:12] LABS: ALT 38 U/L (4-49); AST 27 U/L (17-59); African American GFR (CKD) >90 (>60 ml/min/1.73 sqM); Albumin 4.2 g/dL (3.5-5.0); Alkaline Phosphatase 99 U/L (38-126); Anion Gap 11 mmol/L; Blood Urea Nitrogen 15 mg/dL (9-20); Calcium 9.1 mg/dL (8.4-10.2); Carbon Dioxide 24 mmol/L (22-30); Chloride 104 mmol/L (98-107); Glucose 210 mg/dL (74-99); Non-African American GFR(CKD) 87 (>60 ml/min/1.73 sqM); Potassium 4.4 mmol/L (3.5-5.1); Sodium 139 mmol/L (137-145); Total Bilirubin 0.5 mg/dL (0.2-1.3); Total Protein 6.9 g/dL (6.3-8.2)
--- NOTE | 2023-07-31 18:14 | XR ---
EXAMINATION TYPE: XR chest 2V DATE OF EXAM: 07/31/2023 6:03 PM COMPARISON: Chest radiographs from 01/20/2016 TECHNIQUE: XR chest 2V Frontal and lateral views of the chest. CLINICAL INDICATION:Male, 78 years old with history of chest pain; FINDINGS: Lungs/Pleura: There is no evidence of pleural effusion, focal consolidation, or pneumothorax. Chroni c senescent parenchymal change. Pulmonary vascularity: Unremarkable. Heart/mediastinum: Cardiomediastinal silhouette is enlarged and stable. Post CABG changes. Musculoskeletal: No acute osseous pathology. Midline sternotomy wires are noted and stable. Mild dege nerative changes of the thoracic spine. IMPRESSION: Chronic changes without evidence for acute process.
[2023-07-31] MEDS ORDERED: ASPIRIN 325 MG TAB PO STA (19:26)
[2023-07-31] MEDS ORDERED: ACETAMINOPHEN TAB 325 MG TAB PO PRN (19:27)
[2023-07-31] MEDS ORDERED: NALOXONE 0.4 MG/ML 1 ML VIAL IV PRN (19:27)
[2023-07-31] MEDS ORDERED: HEPARIN SODIUM 1,000 UN/ML (10ML VL) IV PRN (22:49)
[2023-07-31] MEDS ORDERED: HEPARIN SODIUM 1,000 UN/ML (10ML VL) IV ONE (22:49)
[2023-07-31] MEDS: HEPARIN SOD,PORK IN 0.45% NACL 25,000 UNIT in 0.45% NACL 1 250ML.BAG IV SCH (23:20)
[2023-08-01 05:06] LABS: INR 1.1 (<1.2); Partial Thromboplastin Time 48.8 sec (22.0-30.0); Prothrombin Time 11.1 sec (9.0-12.0)
[2023-08-01 05:08] LABS: Basophils % (A) 0 %; Eosinophils # (A) 0.5 k/uL (0-0.7); Eosinophils % (A) 5 %; HCT 45.4 % (39.0-53.0); HGB 14.9 gm/dL (13.0-17.5); Lymphocytes # (A) 2.5 k/uL (1.0-4.8); Lymphocytes % (A) 27 %; MCH 30.3 pg (25.0-35.0); MCHC 32.8 g/dL (31.0-37.0); MCV 92.4 fL (80.0-100.0); Mean Platelet Volume 8.3; Monocytes # (A) 0.7 k/uL (0-1.0); Monocytes % (A) 8 %; Neutrophils # (A) 5.2 k/uL (1.3-7.7); Neutrophils % (A) 58 %; Platelet Count 226 k/uL (150-450); RBC 4.92 m/uL (4.30-5.90); RDW 13.4 % (11.5-15.5)
--- NOTE | 2023-08-01 08:47 | P.HPIM ---
History of Present Illness H&P Date: 08/01/23 Chief Complaint: Chest pain This is an 78-year-old male who presented to the emergency department with complaints of chest pain. Patient reports he had 2 episodes of chest pain yesterday. The first episode was after breakfast, he had had some coffee and noticed some chest discomfort. He was able to rest and felt better. Later in the afternoon the pain came back and did not go away so he came to the emergency room for evaluation. He does have a past history of coronary artery disease disease with a bypass completed in 2016. History of atrial fibrillation, patient was started on a heparin drip. Further medical call history as noted below. He reports he last saw his home care consultant about 3-4 months ago. He is seen this morning laying on stretcher in the emergency room. He denies any further chest pain episodes since yesterday afternoon. Troponin elevated on admission. Cardiology has been consulted. Review of Systems Constitutional: Denies chills, Denies fever Cardiovascular: Reports chest pain, Denies dyspnea on exertion Respiratory: Denies cough, Denies dyspnea Gastrointestinal: Denies abdominal pain, Denies nausea, Denies vomiting Musculoskeletal: Denies arm numbness/tingling, Denies leg numbness/tingling Neurological: Denies headaches, Denies weakness Past Medical History Past Medical History: Atrial Fibrillation, Asthma, Cancer, GERD/Reflux, GI Bleed, Hyperlipidemia, Hypertension, Osteoarthritis (OA) Additional Past Medical History / Comment(s): Current GI bleed. Hx Bladder [id number], also Hx Skin CA - basal cell, Madison's. History of Any Multi-Drug Resistant Organisms: None Reported Past Surgical History: Appendectomy, Bladder Surgery, Cholecystectomy, Coronary Bypass/CABG, Heart Catheterization, Orthopedic Surgery Additional Past Surgical History / Comment(s): RT ROTATOR CUFF SX. PARTIAL BLADDER REMOVED D/T CANCER. SKIN CA REMOVED. PAST EGD, COLONOSCOPY. 4 vessel CABG. Past Anesthesia/Blood Transfusion Reactions: No Reported Reaction Past Psychological History: No Psychological Hx Reported Smoking Status: Never smoker Past Alcohol Use History: Occasional Past Drug Use History: None Reported - Past Family History Mother Family Medical History: Cancer Additional Family Medical History / Comment(s): at age 36 from breast cancer. Father Family Medical History: Myocardial Infarction ([place]) Additional Family Medical History / Comment(s): at 73 yrs of age. Brother(s) Family Medical History: Cancer Additional Family Medical History / Comment(s): Intestinal cancer. Medications and Allergies Home Medications Medication Instructions Recorded Confirmed Type Aspirin [Adult Low Dose Aspirin EC] 81 mg PO DAILY 12/30/15 07/31/23 History Atorvastatin [Lipitor] 80 mg PO DAILY@1200 01/12/16 07/31/23 History Metoprolol Tartrate [Lopressor] 25 mg PO BID #60 tab 01/20/16 07/31/23 Rx Spironolactone [Aldactone] 25 mg PO DAILY 09/26/16 07/31/23 History Losartan [Cozaar] 25 mg PO DAILY@1200 11/07/18 07/31/23 History Apixaban [Eliquis] 5 mg PO BID 07/31/23 07/31/23 History Fluticasone Propion/Salmeterol 1 puff INHALATION RT-DAILY 07/31/23 07/31/23 History [Advair 250-50 Diskus] Omeprazole Magnesium [PriLOSEC OTC] 20 mg PO DAILY 07/31/23 07/31/23 History Tamsulosin [Flomax] 0.4 mg PO HS 07/31/23 07/31/23 History Allergies Allergy/AdvReac Type Severity Reaction Status Date / Time hydrocodone bitartrate Allergy Itching Verified 07/31/23 20:13 [From Vicodin] dust Allergy "asthma" Uncoded 07/31/23 20:13 "can't breathe" Physical Exam Vitals: Vital Signs Temp Pulse Resp BP Pulse Ox 08/01/23 03:00 77 19 159/90 95 07/31/23 22:28 98.6 F 90 18 138/92 97 07/31/23 17:48 98.6 F 89 18 130/80 96 07/31/23 17:11 97.6 F 92 18 131/80 97 Intake and Output 07/31/23 08/01/23 08/01/23 22:59 06:59 14:59 Other: Weight 98.883 kg - Constitutional General appearance: cooperative, no acute distress - EENT Eyes: PERRLA - Neck Neck: no lymphadenopathy, normal ROM, no rigidity - Respiratory Respiratory: bilateral: CTA - Cardiovascular Heart sounds: normal: S1, S2 - Gastrointestinal General gastrointestinal: soft, no tenderness - Integumentary Integumentary: normal, normal turgor - Psychiatric Psychiatric: A&O x's 3, appropriate affect Results CBC & Chem 7: 08/01/23 04:48 07/31/23 17:30 Labs: Abnormal Lab Results - Last 24 Hours (Table) 07/31/23 07/31/23 08/01/23 Range/Units 17:30 21:38 00:44 APTT (22.0-30.0) sec Glucose 210 H (74-99) mg/dL Troponin I 0.364 H* 0.421 H* (0.000-0.034) ng/mL 08/01/23 Range/Units 04:48 APTT 48.8 H (22.0-30.0) sec Glucose (74-99) mg/dL Troponin I (0.000-0.034) ng/mL Assessment and Plan (1) Chest pain Current Visit: Yes Status: Acute Code(s): R07.9 - CHEST PAIN, UNSPECIFIED SNOMED Code(s): 44500942 (2) S/P CABG (coronary artery bypass graft) Current Visit: Yes Status: Acute Code(s): Z95.1 - PRESENCE OF AORTOCORONARY BYPASS GRAFT SNOMED Code(s): 998409371 (3) Atrial fibrillation Current Visit: Yes Status: Acute Code(s): I48.91 - UNSPECIFIED ATRIAL FIBRILLATION SNOMED Code(s): 10380032 (4) Asthma Current Visit: No Status: Acute Code(s): J45.909 - UNSPECIFIED ASTHMA, UNCOMPLICATED SNOMED Code(s): 520736948 (5) GERD (gastroesophageal reflux disease) Current Visit: No Status: Acute Code(s): K21.9 - GASTRO-ESOPHAGEAL REFLUX DISEASE WITHOUT ESOPHAGITIS SNOMED Code(s): 284229601 (6) HTN (hypertension) Current Visit: No Status: Acute Code(s): I10 - ESSENTIAL (PRIMARY) HYPERTENSION SNOMED Code(s): 60686379 (7) Hyperlipemia Current Visit: No Status: Acute Code(s): E78.5 - HYPERLIPIDEMIA, UNSPECIFIED SNOMED Code(s): 05665999 Plan: Keep patient nothing by mouth until evaluated by cardiology. We'll restart home medications. Check CBC and CMP in the morning. Patient seen and evaluated by nurse practitioner, physician in agreement with vivian jerez
--- NOTE | 2023-08-01 09:00 | P.CRDCN ---
History of Present Illness Consult date: 08/01/23 History of present illness: HISTORY OF PRESENTING ILLNESS 78-year-old male with past medical history of CAD status post CABG in 2016. He also has history of paroxysmal atrial fibrillation on Eliquis therapy. He has history of moderately reduced LVEF in the range of 35-40%. This time he presented to the hospital with the complaints of substernal chest pain. Patient reports that his chest pain got better with sublingual at a blistering in the ER. On admission his ECG showed nonspecific ST-T wave changes. He has been hemodynamically stable. His hemoglobin and creatinine are within normal limits. His initial troponin was negative but repeat troponin was positive and trended up. Troponin was 0.03, 0.3, 0.4 Patient reports that she has been compliant to his medications. Patient reports that when he had a CABG in 2016 he did not have a lot of cardiac symptoms. DIAGNOSTICS ECG from this time shows normal sinus rhythm with nonspecific T-wave changes in inferolateral leads. PRIOR CARDIAC TESTING Last stress test from December 2020 showed preserved myocardial perfusion with reduced LVEF in the range of 38%. Last echo from 2021 showed an EF of 35-40%, no major valvular abnormalities. REVIEW OF SYSTEMS 14 point review of system is negative except what is mentioned above in HPI. PHYSICAL EXAMINATION Vital signs reviewed. Head: Normocephalic. Eyes: Sclerae nonicteric. Neck: Brisk carotid upstroke, no jugular venous distention. Lungs: Clear to auscultation. Heart: Regular rate and rhythm, S1-S2, no S3, no murmur or rub. Abdomen: Soft nontender, positive bowel sounds no organomegaly. Extremities: No edema, intact distal pulses. ASSESSMENT NSTEMI History of CAD status post CABG in 2016 Heart failure with reduced EF, chronic stable. Not in fluid overload. EF 35- 40% Ischemic cardiomyopathy Obesity PLAN Continue IV heparin drip Continue aspirin, atorvastatin, metoprolol, losartan, Spiriva lactone Plan for heart catheterization either today or tomorrow. Keep patient nothing by mouth Past Medical History Past Medical History: Atrial Fibrillation, Asthma, Cancer, GERD/Reflux, GI Bleed, Hyperlipidemia, Hypertension, Osteoarthritis (OA) Additional Past Medical History / Comment(s): Current GI bleed. Hx Bladder [id number], also Hx Skin CA - basal cell, Madison's. History of Any Multi-Drug Resistant Organisms: None Reported Past Surgical History: Appendectomy, Bladder Surgery, Cholecystectomy, Coronary Bypass/CABG, Heart Catheterization, Orthopedic Surgery Additional Past Surgical History / Comment(s): RT ROTATOR CUFF SX. PARTIAL BLADDER REMOVED D/T CANCER. SKIN CA REMOVED. PAST EGD, COLONOSCOPY. 4 vessel CABG. Past Anesthesia/Blood Transfusion Reactions: No Reported Reaction Past Psychological History: No Psychological Hx Reported Smoking Status: Never smoker Past Alcohol Use History: Occasional Past Drug Use History: None Reported - Past Family History Mother Family Medical History: Cancer Additional Family Medical History / Comment(s): at age 36 from breast cancer. Father Family Medical History: Myocardial Infarction ([place]) Additional Family Medical History / Comment(s): at 73 yrs of age. Brother(s) Family Medical History: Cancer Additional Family Medical History / Comment(s): Intestinal cancer. Medications and Allergies Home Medications Medication Instructions Recorded Confirmed Type Aspirin [Adult Low Dose Aspirin EC] 81 mg PO DAILY 12/30/15 07/31/23 History Atorvastatin [Lipitor] 80 mg PO DAILY@1200 01/12/16 07/31/23 History Metoprolol Tartrate [Lopressor] 25 mg PO BID #60 tab 01/20/16 07/31/23 Rx Spironolactone [Aldactone] 25 mg PO DAILY 09/26/16 07/31/23 History Losartan [Cozaar] 25 mg PO DAILY@1200 11/07/18 07/31/23 History Apixaban [Eliquis] 5 mg PO BID 07/31/23 07/31/23 History Fluticasone Propion/Salmeterol 1 puff INHALATION RT-DAILY 07/31/23 07/31/23 History [Advair 250-50 Diskus] Omeprazole Magnesium [PriLOSEC OTC] 20 mg PO DAILY 07/31/23 07/31/23 History Tamsulosin [Flomax] 0.4 mg PO HS 07/31/23 07/31/23 History Allergies Allergy/AdvReac Type Severity Reaction Status Date / Time hydrocodone bitartrate Allergy Itching Verified 07/31/23 20:13 [From Vicodin] dust Allergy "asthma" Uncoded 07/31/23 20:13 "can't breathe" Physical Exam Vitals: Vital Signs Temp Pulse Resp BP Pulse Ox 08/01/23 03:00 77 19 159/90 95 07/31/23 22:28 98.6 F 90 18 138/92 97 07/31/23 17:48 98.6 F 89 18 130/80 96 07/31/23 17:11 97.6 F 92 18 131/80 97 Intake and Output 07/31/23 08/01/23 08/01/23 22:59 06:59 14:59 Other: Weight 98.883 kg Results 08/01/23 04:48 07/31/23 17:30 Cardiac Enzymes 07/31/23 07/31/23 07/31/23 Range/Units 17:30 17:30 21:38 AST 27 (17-59) U/L Troponin I 0.031 0.364 H* (0.000-0.034) ng/mL 08/01/23 Range/Units 00:44 AST (17-59) U/L Troponin I 0.421 H* (0.000-0.034) ng/mL Coagulation 07/31/23 08/01/23 Range/Units 17:30 04:48 PT 10.6 11.1 (9.0-12.0) sec APTT 25.8 48.8 H (22.0-30.0) sec CBC 07/31/23 08/01/23 Range/Units 17:30 04:48 WBC 8.3 9.0 (3.8-10.6) k/uL RBC 5.12 4.92 (4.30-5.90) m/uL Hgb 15.4 14.9 (13.0-17.5) gm/dL Hct 46.9 45.4 (39.0-53.0) % Plt Count 239 226 (150-450) k/uL Comprehensive Metabolic Panel 07/31/23 Range/Units 17:30 Sodium 139 (137-145) mmol/L Potassium 4.4 (3.5-5.1) mmol/L Chloride 104 (98-107) mmol/L Carbon Dioxide 24 (22-30) mmol/L BUN 15 (9-20) mg/dL Creatinine 0.74 (0.66-1.25) mg/dL Glucose 210 H (74-99) mg/dL Calcium 9.1 (8.4-10.2) mg/dL AST 27 (17-59) U/L ALT 38 (4-49) U/L Alkaline Phosphatase 99 (38-126) U/L Total Protein 6.9 (6.3-8.2) g/dL Albumin 4.2 (3.5-5.0) g/dL Current Medications Generic Name Dose Route Start Last Admin Trade Name Freq PRN Reason Stop Dose Admin Acetaminophen 650 mg 07/31/23 19:27 Acetaminophen Tab 325 Mg Tab PO Q6HR PRN Mild Pain or Fever > 100.5 Aspirin 81 mg 08/01/23 09:00 Aspirin 81 Mg PO DAILY [facility] Atorvastatin Calcium 80 mg 08/01/23 12:00 Atorvastatin 80 Mg Tab PO DAILY@1200 [facility] Budesonide/Formoterol Fumarate 2 puff 08/02/23 08:00 Symbicort 80-4.5 Mcg Inhaler INHALATION RT-DAILY [facility] Heparin Sodium (Porcine) 0 unit 07/31/23 22:49 Heparin Sodium 1,000 Un/Ml (10ml Vl) IV PER PROTOCOL PRN Low PTT Protocol Heparin Sodium/Sodium Chloride 250 mls @ 9.997 mls/hr 07/31/23 23:00 07/31/23 23:20 25,000 unit/ Sodium Chloride IV 10.11 units/kg/hr .Q24H DOT 9.997 mls/hr Administration Protocol 10.11 UNITS/KG/HR Losartan Potassium 25 mg 08/01/23 12:00 Losartan 25 Mg Tab PO DAILY@1200 [facility] Metoprolol Tartrate 25 mg 08/01/23 09:00 Metoprolol Tartrate 25 Mg Tab PO BID [facility] Naloxone HCl 0.2 mg 07/31/23 19:27 Naloxone 0.4 Mg/Ml 1 Ml Vial IV Q2M PRN Opioid Reversal Pantoprazole Sodium 40 mg 08/02/23 07:30 Pantoprazole 40 Mg Tablet PO AC-BRKFST [facility] Spironolactone 25 mg 08/01/23 09:00 Spironolactone 25 Mg Tab PO DAILY [facility] Tamsulosin HCl 0.4 mg 08/01/23 21:00 Tamsulosin 0.4 Mg Cap.Er.24h PO HS [facility] Intake and Output 07/31/23 08/01/23 08/01/23 22:59 06:59 14:59 Other: Weight 98.883 kg 08/01/23 04:48 07/31/23 17:30
[2023-08-01] MEDS: ASPIRIN 81 MG PO SCH (09:37)
[2023-08-01] MEDS: METOPROLOL TARTRATE 25 MG TAB PO SCH ×2 (09:37→21:05)
[2023-08-01] MEDS: SPIRONOLACTONE 25 MG TAB PO SCH (09:37)
[2023-08-01] MEDS: ATORVASTATIN 80 MG TAB PO SCH (13:14)
[2023-08-01] MEDS: LOSARTAN 25 MG TAB PO SCH (13:14)
[2023-08-01] MEDS: TAMSULOSIN 0.4 MG CAP.ER.24H PO SCH (21:04)
[2023-08-01] MEDS: HEPARIN SOD,PORK IN 0.45% NACL 25,000 UNIT in 0.45% NACL 1 250ML.BAG IV SCH (23:47)
[2023-08-02] MEDS: PANTOPRAZOLE 40 MG TABLET PO SCH (06:06)
[2023-08-02] MEDS: METOPROLOL TARTRATE 25 MG TAB PO SCH ×2 (06:06→20:35)
[2023-08-02] MEDS: ATORVASTATIN 80 MG TAB PO SCH ×2 (06:06→06:07)
[2023-08-02] MEDS: ASPIRIN 81 MG PO SCH (06:06)
[2023-08-02] MEDS ORDERED: HEPARIN SODIUM,PORCINE (1 ML) 2,500 UNIT in SODIUM CHLORIDE 0.9% 250 ML IRRIGATION PRN (07:00)
[2023-08-02] MEDS ORDERED: HEPARIN SODIUM,PORCINE 10,000 UNIT in SODIUM CHLORIDE 0.9% 1,000 ML IRRIGATION PRN (07:00)
--- NOTE | 2023-08-02 08:16 | P.PN ---
Subjective Principal diagnosis: Chest pain. This is an 78-year-old white male essentially admitted for anginal equivalent. Cardiac catheterization is scheduled for today. The patient feels fine since starting heparin and appropriate protocols. Objective - Vital Signs Vital signs: Vital Signs Temp 98.3 F 08/02/23 04:12 Pulse 79 08/02/23 04:12 Resp 18 08/02/23 04:12 BP 120/73 08/02/23 04:12 Pulse Ox 97 08/02/23 04:12 FiO2 Intake & Output 08/01/23 08/02/23 08/02/23 18:59 06:59 18:59 Intake Total 244.427 Output Total 1100 Balance -855.573 Weight 98.883 kg Intake: Intake, IV Titration 244.427 Amount Heparin Sod,Pork in 0.45% 244.427 NaCl 25,000 unit In 0.45 % NaCl 1 250ml.bag @ 10. 11 UNITS/KG/HR 9.997 mls/ hr IV .Q24H DOT Rx#: [id number] Output: Urine 1100 Other: Voiding Method Toilet # Voids 1 - Constitutional General appearance: Present: average body habitus - EENT Eyes: Absent: abnormal pupil - Neck Neck: Absent: lymphadenopathy - Respiratory Respiratory: bilateral: diminished - Cardiovascular Rhythm: regular Heart sounds: normal: S1, S2 Abnormal Heart Sounds: Absent: S3 Gallop - Gastrointestinal General gastrointestinal: Present: soft. Absent: tenderness - Labs CBC & Chem 7: 08/01/23 04:48 07/31/23 17:30 Assessment and Plan (1) Atrial fibrillation Current Visit: Yes Status: Acute Code(s): I48.91 - UNSPECIFIED ATRIAL FIBRILLATION SNOMED Code(s): 56759059 (2) Chest pain Current Visit: Yes Status: Acute Code(s): R07.9 - CHEST PAIN, UNSPECIFIED SNOMED Code(s): 78443340 (3) S/P CABG (coronary artery bypass graft) Current Visit: Yes Status: Acute Code(s): Z95.1 - PRESENCE OF AORTOCORONARY BYPASS GRAFT SNOMED Code(s): 864990444 (4) Asthma Current Visit: No Status: Acute Code(s): J45.909 - UNSPECIFIED ASTHMA, UNCOMPLICATED SNOMED Code(s): 019992004 (5) GERD (gastroesophageal reflux disease) Current Visit: No Status: Acute Code(s): K21.9 - GASTRO-ESOPHAGEAL REFLUX D ISEASE WITHOUT ESOPHAGITIS SNOMED Code(s): 178276903 Plan: Await cardiology testing. Patient seems stable otherwise. We will continue to follow.
[2023-08-02] MEDS: SYMBICORT 80-4.5 MCG INHALER INHALATION SCH (09:51)
[2023-08-02 10:26] LABS: HCT 45.7 % (39.0-53.0); HGB 15.6 gm/dL (13.0-17.5); MCH 31.8 pg (25.0-35.0); MCHC 34.1 g/dL (31.0-37.0); MCV 93.2 fL (80.0-100.0); Mean Platelet Volume 8.3; Platelet Count 249 k/uL (150-450); RDW 13.2 % (11.5-15.5); WBC 8.1 k/uL (3.8-10.6)
[2023-08-02 10:38] LABS: ALT 36 U/L (4-49); AST 25 U/L (17-59); African American GFR (CKD) >90 (>60 ml/min/1.73 sqM); Albumin 4.1 g/dL (3.5-5.0); Alkaline Phosphatase 79 U/L (38-126); Anion Gap 11 mmol/L; Blood Urea Nitrogen 14 mg/dL (9-20); Calcium 9.3 mg/dL (8.4-10.2); Carbon Dioxide 24 mmol/L (22-30); Chloride 103 mmol/L (98-107); Glucose 176 mg/dL (74-99); Non-African American GFR(CKD) 87 (>60 ml/min/1.73 sqM); Potassium 4.3 mmol/L (3.5-5.1); Sodium 138 mmol/L (137-145); Total Protein 6.7 g/dL (6.3-8.2)
[2023-08-02] MEDS ORDERED: NITROGLYCERIN SL TABS 0.4 MG TAB SUBLINGUAL PRN (11:23)
[2023-08-02] MEDS ORDERED: ASPIRIN 325 MG TAB PO STA (11:23)
[2023-08-02] MEDS ORDERED: ASPIRIN 81 MG PO STA (11:49)
[2023-08-02] MEDS: SODIUM CHLORIDE 0.9% 1,000 ML in EMPTY BAG 1 BAG IV SCH ×2 (12:03→21:38)
[2023-08-02] MEDS: SPIRONOLACTONE 25 MG TAB PO SCH (15:12)
[2023-08-02] MEDS: LOSARTAN 25 MG TAB PO SCH (15:12)
[2023-08-02] MEDS ORDERED: SODIUM CHLORIDE 0.9% 500 ML 500 ML IV ONE (19:15)
[2023-08-02] MEDS ORDERED: MIDAZOLAM 2 MG/2 ML VIAL IVP ONE (19:18)
[2023-08-02] MEDS ORDERED: LIDOCAINE 1% INJ 10MG/ML (30 ML VIAL-PF) SQ ONE (19:21)
[2023-08-02] MEDS ORDERED: RX INFO: IV CONTRAST WAS GIVEN 1 EACH MISC MISCELLANE PRN (19:47)
[2023-08-02] MEDS ORDERED: IOPAMIDOL-370 200ML BTL INJ ONE (19:49)
--- NOTE | 2023-08-02 19:50 | P.PCN ---
Date of Procedure: 08/02/23 Operative Findings: CARDIAC CATHETERIZATION PERFORMING PHYSICIAN: Arik Aquino MD, RPVI PROCEDURE PERFORMED: 1. Selective right and left coronary angiogram 2. Left heart catheterization 3. ROJO to LAD angiogram and SVG to LCx angiogram and SVG to RCA angiogram 4. Ultrasound-guided access of the right common femoral artery and right common femoral artery angiogram INDICATION: Acute non-ST elevation myocardial infarction COMPLICATION: None APPROACH: Right common femoral artery LEVEL OF SEDATION: Moderate with sedation in length of 22 minutes PROCEDURE DESCRIPTION: After obtaining an informed consent, the patient was brought to cardiac mine laborer. Local anesthesia was performed using lidocaine subcutaneously. The right common femoral artery was cannulated using Seldinger technique, the guidewire passed easily, following that we advanced a 6 Swazi sheath dilator assembly, the wire and dilator were removed and sheath was flushed. Selective right and left coronary angiogram using a 6-Swazi JR4 and JL catheters. ROJO into LAD angiogram and SVG to LCx angiogram and SVG to RCA angiogram was performed using JR4 catheter Following that we did left heart catheterization using 6-Swazi pigtail catheter. The procedure was completed there was no complication. SELECTIVE CORONARY ANGIOGRAM: The right coronary artery: Large caliber vessel and a dominant vessel. The RCA has severe lesion in the midportion Left main: Has mild disease only. Bifurcates into an LCx and LAD The left circumflex: Is occluded in the proximal portions and fills by collateral from the left and right coronary system The left anterior descending artery: Has a critical lesion in the proximal to midportion by the bifurcation of a me dium size diagonal branch. The coronary bypasses angiogram The ROJO to LAD is patent The SVG to LCx is occluded The SVG to RCA is patent HEMODYNAMICS: The LVEDP was 8 mmHg was no significant gradient across aortic valve CONCLUSION: 1. Severe triple-vessel CAD 2. Patent ROJO to LAD. Occluded SVG to LCx. Patent SVG to RCA 3. Normal left-sided filling pressure POSTPROCEDURE MANAGEMENT: Medical treatment
[2023-08-02] MEDS ORDERED: SODIUM CHLORIDE 0.9% 1,000 ML IV SCH (20:00)
[2023-08-02] MEDS: TAMSULOSIN 0.4 MG CAP.ER.24H PO SCH (20:35)
[2023-08-03 05:10] VITALS: TEMP 97.7
[2023-08-03] MEDS: PANTOPRAZOLE 40 MG TABLET PO SCH (06:34)
[2023-08-03] MEDS: SPIRONOLACTONE 25 MG TAB PO SCH (08:09)
[2023-08-03] MEDS: METOPROLOL TARTRATE 25 MG TAB PO SCH (08:09)
[2023-08-03] MEDS: ASPIRIN 81 MG PO SCH (08:09)
[2023-08-03] MEDS: SYMBICORT 80-4.5 MCG INHALER INHALATION SCH (08:29)
[2023-08-03] MEDS ORDERED: HEPARIN SODIUM,PORCINE 5,000 UNIT/ML 1 ML VIAL SQ SCH (09:00)
[2023-08-03] MEDS: SODIUM CHLORIDE 0.9% 1,000 ML in EMPTY BAG 1 BAG IV SCH (09:47)
[2023-08-03] MEDS: LOSARTAN 25 MG TAB PO SCH (12:50)
[2023-08-03 13:05] VITALS: RESP 18
[2023-08-03 15:40] VITALS: BP 123/72; PULSE 73
[2023-08-03] MEDS: HEPARIN SOD,PORK IN 0.45% NACL 25,000 UNIT in 0.45% NACL 1 250ML.BAG IV SCH (16:07)
--- NOTE | 2023-08-03 18:51 | P.DS ---
Providers Date of admission: 08/01/23 12:48 Attending physician: Eloy Blake Consults: 07/31/23 19:27 Consult Physician Routine Consulting Provider: Arik Aquino Consult Reason/Comments: CP Do you want consulting provider notified?: Yes Primary care physician: Eloy Blake Hospital Course: diagnoses: (1) Chest pain, cardiac cath showing severe triple vessel coronary artery disease . Cardiology recommended conservative management. Chest pain resolved upon discharge (2) history of coronary artery disease S/P CABG (coronary artery bypass graft) (3) Atrial fibrillation, rate controlled on eliquis (4) HTN (hypertension) (5) Hyperlipemia (6) h/o GERD (gastroesophageal reflux disease) (7) h/o Asthma hospital course: This is an 78-year-old male who presented to the emergency department with complaints of left arm pain and heaviness associated with sweating and lightheadedness on 07/31. His symptoms currently completely resolved. He is evaluated by lacquer spray booth operator and he underwent cardiac cath showed severe triple- vessel coronary artery disease with patent ROJO to LAD , occluded SVG to left circumflex and patent SVG to RCA. Professor Of Communication And Writing recommended to continue with conservative treatment. Patient would be discharged on his home dose of Eliquis and Plavix. Patient confirmed he has a liquids and other prescription at home. Patient told me today he is back to baseline and he is as symptomatic and he would like to go home today. Professor Of Communication And Writing already cleared the patient for discharge. Problems and management plan were discussed with the patient and he verbalized understanding and acceptance Patient was found stable and can be discharged home in guarded prognosis however he needs follow-up as an outpatient. Patient was instructed to follow up with PCP Dr. Blake within one week and patient agrees Patient was instructed to follow up with Dr. Diaz in 1 week after discharge and he agrees Physical exam Gen: patient is a AAOx3, no distress CVS: S1-S2, RRR, no murmur Lungs: B/L CTA, no wheezing Abdomen: soft, no distention, no tenderness, positive bowel sounds Extremity: no leg edema or induration Time spent more than 35 minutes Patient Condition at Discharge: Stable Plan - Discharge Summary Discharge Rx Participant: Yes New Discharge Prescriptions: New Clopidogrel [Plavix] 75 mg PO DAILY 90 Days #90 tablet Nitroglycerin Sl Tabs [Nitrostat] 0.4 mg SUBLINGUAL Q5M PRN 30 Days #50 tab PRN Reason: Chest Pain Continue Atorvastatin [Lipitor] 80 mg PO DAILY@1200 Metoprolol Tartrate [Lopressor] 25 mg PO BID #60 tab Spironolactone [Aldactone] 25 mg PO DAILY Losartan [Cozaar] 25 mg PO DAILY@1200 Apixaban [Eliquis] 5 mg PO BID Fluticasone Propion/Salmeterol [Advair 250-50 Diskus] 1 puff INHALATION RT- DAILY Omeprazole Magnesium [PriLOSEC OTC] 20 mg PO DAILY Tamsulosin [Flomax] 0.4 mg PO HS Discontinued Aspirin [Adult Low Dose Aspirin EC] 81 mg PO DAILY Discharge Medication List Atorvastatin [Lipitor] 80 mg PO DAILY@1200 01/12/16 [History] Metoprolol Tartrate [Lopressor] 25 mg PO BID #60 tab 01/20/16 [Rx] Spironolactone [Aldactone] 25 mg PO DAILY 09/26/16 [History] Losartan [Cozaar] 25 mg PO DAILY@1200 11/07/18 [History] Apixaban [Eliquis] 5 mg PO BID 07/31/23 [History] Fluticasone Propion/Salmeterol [Advair 250-50 Diskus] 1 puff INHALATION RT-DAILY 07/31/23 [History] Omeprazole Magnesium [PriLOSEC OTC] 20 mg PO DAILY 07/31/23 [History] Tamsulosin [Flomax] 0.4 mg PO HS 07/31/23 [History] Clopidogrel [Plavix] 75 mg PO DAILY 90 Days #90 tablet 08/03/23 [Rx] Nitroglycerin Sl Tabs [Nitrostat] 0.4 mg SUBLINGUAL Q5M PRN 30 Days #50 tab 08/03/23 [Rx] Follow up Appointment(s)/Referral(s): Mamadou Colon MD [Medical Doctor] - 1 Week Eloy Blake MD [Primary Care Provider] - 1 Week Patient Instructions/Handouts: Chest Pain (DC), Heart Catheterization (DC) Discharge Disposition: HOME SELF-CARE
== END 2023-08-03 18:27 | disposition home or self-care (01) | DRG 287 ==
LOC: EC 16:52 → 6NMEDSUR 19:28 → 3SCARD 22:53 → OBSVTOIN 08-01 12:48 → 3SCARD 08-01 17:20
PROVIDERS: ADMIT Family Medicine; ATTEND Family Medicine
PROC: B2131ZZ Fluoroscopy of Multiple Coronary Artery Bypass Grafts using Low Osmolar Contrast (ICD-10-PCS; 2023-08-02)
PROC: B2181ZZ Fluoroscopy of Left Internal Mammary Bypass Graft using Low Osmolar Contrast (ICD-10-PCS; 2023-08-02)
PROC: B41F1ZZ Fluoroscopy of Right Lower Extremity Arteries using Low Osmolar Contrast (ICD-10-PCS; 2023-08-02)
PROC: 4A023N7 Measurement of Cardiac Sampling and Pressure, Left Heart, Percutaneous Approach (ICD-10-PCS; principal; 2023-08-02 12:00)
PROC: B2111ZZ Fluoroscopy of Multiple Coronary Arteries using Low Osmolar Contrast (ICD-10-PCS; 2023-08-02 12:00)
DX: I25.110 Atherosclerotic heart disease of native coronary artery with unstable angina pectoris (principal); I25.700 Atherosclerosis of coronary artery bypass graft(s), unspecified, with unstable angina pectoris; I50.22 Chronic systolic (congestive) heart failure; E66.9 Obesity, unspecified; I25.5 Ischemic cardiomyopathy; E78.5 Hyperlipidemia, unspecified; J45.909 Unspecified asthma, uncomplicated; I11.0 Hypertensive heart disease with heart failure; Z79.01 Long term (current) use of anticoagulants; Z79.899 Other long term (current) drug therapy; Z82.49 Family history of ischemic heart disease and other diseases of the circulatory system; Z85.828 Personal history of other malignant neoplasm of skin; Z85.51 Personal history of malignant neoplasm of bladder; Z79.82 Long term (current) use of aspirin; Z87.19 Personal history of other diseases of the digestive system; Z90.49 Acquired absence of other specified parts of digestive tract
CPT/HCPCS: 36415; 71046; 76937; 80053; 84484; 85025; 85027; 85610; 85730; 93005; 93459; 94640; 96365; 96366; 99285

== ENCOUNTER 2024-09-11 05:56 | Day surgery (SDC) | payer MEDICARE ==
[2024-09-11 06:43] VITALS: TEMP 97.3
[2024-09-11] MEDS: LACTATED RINGERS 1,000 ML IV SCH (06:52)
[2024-09-11] MEDS: IV FLUID CONTINUATION 1,000 ML IV ONE (06:52)
[2024-09-11] MEDS ORDERED: LIDOCAINE 1% INJ 10MG/ML (20 ML MDV) ONE (06:59)
[2024-09-11] MEDS ORDERED: PROPOFOL 10 MG/ML 20 ML VIAL IV ONE (06:59)
--- NOTE | 2024-09-11 07:31 | P.PCN ---
Date of Procedure: 09/11/24 Procedure(s) Performed: Brief history: Patient is a pleasant 79-year-old white male scheduled for an elective upper endoscopy as well as colonoscopy as a part of evaluation of GERD/Madison's esophagus/prior history of colon polyps Procedure performed: Esophagogastroduodenoscopy with biopsy Colonoscopy biopsy and snare polypectomy Preoperative diagnosis: GERD/Madison's esophagus History of colon polyps Anesthesia: MAC Procedure: After informed consent was obtained from the patient was brought into the endoscopy unit and IV sedation was administered by anesthesia under continuous monitoring. Initially upper endoscopy was done. The Olympus GF 160 video endoscope was inserted inserted into the mouth and esophagus intubated without any difficulty and was gradually advanced into the stomach and duodenum and carefully examined. The bulb and second part of the duodenum appeared normal. The scope was then withdrawn into the stomach adequately insufflated with air and upon careful examination the antrum and multiple gastric polyps identified which were biopsied. Rest of the body, cardia and fundus appeared normal. The scope was then withdrawn into the esophagus. Small hiatal hernia noted. The GE junction was located at 40 cm to the incisors. It was a long segment of Madison's esophagus extending from 37 to 40 cm from the incisors and multiple biopsies were done from this area. Rest of the esophagus appeared normal. Patient tolerated the procedure well. At this time the patient continued to remain sedation. Initial digital rectal examination was normal. Olympus CF 160 video colonoscope was then inserted into the rectum and gradually advanced to the cecum without any difficulty. Careful examination was performed as the scope was gradually being withdrawn. The prep was excellent. The cecum, normal. The ascending colon there was a 3 mm polyp removed by cold biopsy and a 1 cm flat polyp removed with cold snare polypectomy. Rest of the ascending colon, transverse colon, descending colon, sigmoid colon and rectum appeared normal. Moderate sigmoid diverticulosis. Retroflexion was performed in the rectum and no lesions were noted. Patient tolerated the procedure well. Impression: 1. 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 Colonoscopy revealed 3 mm in 1 cm ascending colon polyp status post cold biopsy and snare polypectomy respectively and moderate sigmoid diverticulosis Recommendations: Findings of this examination were discussed with the patient as well as his family. He was advised to follow-up with the biopsy results. If the biopsy confirms the presence of Madison's esophagus he can have repeat upper endoscopy in 3 years. Recommend a colonoscopy also in 3 years because of history of colon polyps.
[2024-09-11 07:41] VITALS: RESP 18
[2024-09-11 08:07] VITALS: BP 117/85; PULSE 73
== END 2024-09-11 08:24 | disposition home or self-care (01) ==
LOC: ORWHC2ENDO 05:56
PROVIDERS: ATTEND Internal Medicine Gastroenterology
DX: K22.70 Barrett's esophagus without dysplasia (principal); K21.9 Gastro-esophageal reflux disease without esophagitis; K44.9 Diaphragmatic hernia without obstruction or gangrene; K31.7 Polyp of stomach and duodenum; K57.30 Diverticulosis of large intestine without perforation or abscess without bleeding; Z86.0100 Personal history of colon polyps, unspecified; I10 Essential (primary) hypertension; I48.91 Unspecified atrial fibrillation; J45.909 Unspecified asthma, uncomplicated; E78.5 Hyperlipidemia, unspecified; N42.9 Disorder of prostate, unspecified; Z85.51 Personal history of malignant neoplasm of bladder; Z79.899 Other long term (current) drug therapy; Z95.1 Presence of aortocoronary bypass graft; Z98.890 Other specified postprocedural states; Z79.01 Long term (current) use of anticoagulants; Z90.49 Acquired absence of other specified parts of digestive tract
CPT/HCPCS: 88305; 88313; 45380; 45385; 43239; J2003; J2704